=== PATIENT | female | born 1985 | race Caucasian/White ===

== ENCOUNTER 2020-07-05 11:26 | Day surgery (SDC) | payer OTHER, SELFPAY ==
[2020-07-01 12:37] VITALS: BMI 38.1
--- NOTE | 2020-07-03 15:02 | HO.ANESPROP2 ---
Documented by User: Elke Holt 07/03/20 15:02 HPI - Anesthesia Eval Consult details Narrative: 34yo F for Colonoscopy [facility] Past Medical History Medical History (Updated 07/05/20 @ 12:35 by Meryl Melton) Diverticulitis Hx of vertigo Increased BMI Social History Social History Smoking Status: Former smoker Years Smoked: 15 Smoking Quit Date: age 30 Advance Directives Information Provided: No Meds Allergies Allergy/AdvReac Type Severity Reaction Status Date / Time No Known Allergies Allergy Verified 07/05/20 11:46 [No Known Allergies*] Home Medications Medication Instructions Recorded Confirmed Type acetaminophen [Tylenol Extra 07/01/20 07/01/20 History Strength] Exam Exam Date and Time: July 03, 2020 1502 Height,Weight and Vital Signs: Height 5 ft 5 in Weight 103.873 kg Assessment and Plan Assessment Anesthesia Assessment: Chart Reviewed Documented by User: Meryl Melton 07/05/20 12:36 [facility] Past Medical History Medical History (Updated 07/05/20 @ 12:35 by Meryl Melton) Diverticulitis Hx of vertigo Increased BMI Family History Family history of problems with anesthesia: No Surgical History History of Problems with Anesthesia: No (Never had surgery) Social History Social History Smoking Status: Former smoker Years Smoked: 15 Smoking Quit Date: age 30 Advance Directives Information Provided: No Meds Allergies Allergy/AdvReac Type Severity Reaction Status Date / Time No Known Allergies Allergy Verified 07/05/20 11:46 [No Known Allergies*] Home Medications Medication Instructions Recorded Confirmed Type acetaminophen [Tylenol Extra 07/01/20 07/01/20 History Strength] Exam Height,Weight and Vital Signs: Vital Signs Temp Pulse Resp BP Pulse Ox 07/05/20 12:17 97.4 F 84 16 131/88 96 Airway Mallampati Class: II TM Dist: >3cm Neck ROM: Full Loose/Missing/Broken Teeth: No ([place]- intact) Heart: RRR Lungs: CTAB Assessment and Plan Assessment Anesthesia Assessment: Anesthesia Plan Discussed and Chart Reviewed Final Anesthetic Review NPO: Yes ASA Class: II Final Preanesthetic Review: No Changes in Pt Med Stat, Meds/Allgs Chart Reviewed, Consent Obtained/Reviewed and Anes Risks/Benef Reviewed Patient Risk: Low Procedure Risk: Low Anesthetic Plan Anesthetic Plan: MAC: Disposition: Standard PACU
[2020-07-05 12:11] LABS: UPreg QC Valid YES; Urine Pregnancy NEGATIVE (NEGATIVE)
[2020-07-05 12:17] VITALS: BP 131/88; PULSE 84; RESP 16; TEMP 36.3; O2SAT 96
[2020-07-05] MEDS: Lactated Ringers 1,000 ML 100 ML IVCONT (12:19)
--- NOTE | 2020-07-05 12:33 | MHC.SHP ---
Pre-Procedural Eval Section A The patient is an INPATIENT: No Changes since office visit: No Cold of Flu in the past 2 weeks, No New Medical Problems, No Changes in Medication and No Patient answered all questions The History & Physical has been completed within 30 days and I have reviewed it.: Yes Section B Chief Complaint: diverticulitis Allergies: Allergies Allergy/AdvReac Type Severity Reaction Status Date / Time No Known Allergies Allergy Verified 07/05/20 11:46 [No Known Allergies*] Plan Patient has been examined and remains a candidate for the planned procedure
[2020-07-05 13:09] VITALS: BP 94/56; PULSE 89; RESP 16; TEMP 36.4; O2SAT 98
--- NOTE | 2020-07-05 13:12 | PM.OP ---
Brief Operative Note Date of Service: 07/05/20 Pre-op diagnosis: diverticulitis Post-op diagnosis: same Procedure: colonoscopy Surgeon: Brandt Zhong Anesthesia: MAC Estimated blood loss (mL): 0 Pathology: none sent Condition: stable Disposition: PACU
[2020-07-05 13:24] VITALS: BP 110/70; PULSE 87; RESP 18; TEMP 36.4; O2SAT 99
--- NOTE | 2020-07-05 13:53 | HO.POSTANES ---
Post Anesthesia Evaluation Post Anesthesia Evaluation Vital Signs: Vital Signs Temp Pulse Resp BP Pulse Ox 07/05/20 13:24 97.6 F 87 18 110/70 99 07/05/20 13:09 97.6 F 89 16 94/56 L 98 07/05/20 12:17 97.4 F 84 16 131/88 96 Anesthesia: General (tiva) Mental Status: Awake Pain Control: Satisfactory Nausea/Vomiting: None Hydration: Adequate Anesthesia-Related Issues: No Anes. Related Issues
--- NOTE | 2020-07-05 14:43 | OP_ITS ---
SURGEON: Brandt Zhong MD INDICATIONS: Diverticulitis. PREOPERATIVE DIAGNOSIS: POSTOPERATIVE DIAGNOSIS: PROCEDURE PERFORMED: Colonoscopy to the terminal ileum. ESTIMATED BLOOD LOSS: COMPLICATIONS: ANESTHESIA: ASSISTANTS: SPECIMENS: MEDICATIONS: Monitored anesthesia care. DESCRIPTION OF PROCEDURE: History and physical performed. The risks and benefits of the procedure were explained to the patient. Informed consent was obtained. The patient was placed in the left lateral decubitus position. A digital rectal exam was performed and was found to be normal. The Olympus pediatric video colonoscope was introduced into the rectum and advanced to the cecum without difficulty. The cecum was identified by transillumination, palpation, and identification of ileocecal valve. Examination was performed and the scope was removed. She tolerated the procedure well and was taken to recovery area in stable condition. FINDINGS: The terminal ileum was normal. The visualized colonic mucosa was normal. The quality of prep was good. There was moderate sigmoid diverticulosis. Retroflexed examination showed small internal hemorrhoids. No mass lesions were identified. No colitis was seen. IMPRESSION: Diverticulosis. RECOMMENDATIONS: 1. Follow up as needed. 2. High-fiber diet. 3. Colon cancer screening is recommended every 10 years for average risk individuals beginning by age 50. MD DEANGELO Wang/PRIMITIVO / [phone]
== END 2020-07-05 14:00 | disposition home or self-care (01) ==
PROVIDERS: Nurse Practitioner; PCP Internal Medicine; Visit Provider Internal Medicine Gastroenterology
PROC: 0DJD8ZZ Inspection of Lower Intestinal Tract, Via Natural or Artificial Opening Endoscopic (ICD-10-PCS; CPT 45378; principal; 2020-07-05 12:40)
DX: K57.32 Diverticulitis of large intestine without perforation or abscess without bleeding (principal); K64.8 Other hemorrhoids; R42 Dizziness and giddiness; Z87.891 Personal history of nicotine dependence
CPT/HCPCS: 45378; 81025

== ENCOUNTER 2020-09-27 11:10 | Outpatient (REF) | payer OTHER, SELFPAY ==
[2020-09-27 11:32] LABS: MANUAL DIFF FLAG NO
[2020-09-27 11:36] LABS: Basophils Percent Auto 0.2 % (0-2); Eosinophils Absolute Auto 0.1 X10*3/uL (0.0-0.4); Hemoglobin 13.4 g/dl (12.0-16.0); Imm Gran Abs Auto 0.02 X10*3/uL (0.00-0.03); Imm Gran Pct Auto 0.4 % (0.0-0.4); Lymphocytes Absolute Auto 1.8 X10*3/uL (1.2-4.9); Lymphocytes Percent Auto 40.6 % (20-40); Mean Corpuscular HGB Conc 33.5 g/dl (31.0-35.0); Mean Corpuscular Hemoglobin 31.4 pg (27.0-33.0); Mean Corpuscular Volume 93.7 fL (80-98); Mean Platelet Volume 10.5 fL (9.4-12.3); Monocytes Absolute Auto 0.4 X10*3/uL (0.1-1.2); Monocytes Percent Auto 8.9 % (2-11); Neutrophils Absolute Auto 2.1 X10*3/uL (2.0-8.3); Neutrophils Percent Auto 47.9 % (45-73); Platelet Count 241 X10*3/uL (160-400); Red Blood Count 4.27 X10*6/uL (4.20-5.50); Red Cell Distribution Width 12.9 % (11.0-16.0); White Blood Count 4.5 X10*3/uL (4.8-10.8)
[2020-09-27 12:17] LABS: Alanine Aminotransferase 18 U/L (0-31); Albumin Level 4.2 g/dL (3.5-5.0); Alkaline Phosphatase 75 U/L (39-117); Anion Gap 11 (12-20); Aspartate Amino Transferase 15 U/L (5-31); Bilirubin Total 0.7 mg/dL (0.0-1.0); Blood Urea Nitrogen 11 mg/dL (9-16); Calcium 8.7 mg/dL (8.4-10.2); Carbon Dioxide 25 mmol/L (22-29); Chloride 109 mmol/L (96-108); Cholesterol 147 mg/dL; Estimated Glomerular Filt Rate > 60; Glucose Fasting 101 mg/dL (60-99); HDL Cholesterol 56 mg/dL; LDL Cholesterol Calculated 57 mg/dl; Potassium 4.1 mmol/L (3.3-5.1); Sodium 141 mmol/L (135-145); Total Protein 6.7 g/dL (6.5-8.0); Triglycerides 170 mg/dL
[2020-09-27 12:24] LABS: Thyroid Stimulating Hormone 1.63 uIU/mL (0.32-4.0)
== END 2020-09-27 11:11 | disposition home or self-care (01) ==
LOC: HO.LAB 11:10
PROVIDERS: PCP Internal Medicine; Visit Provider Internal Medicine
DX: Z00.00 Encounter for general adult medical examination without abnormal findings (principal); E03.9 Hypothyroidism, unspecified; E11.9 Type 2 diabetes mellitus without complications
CPT/HCPCS: 36415; 80053; 80061; 84443; 85025

== ENCOUNTER → 2021-01-23 11:43 | Outpatient (BNVA) | payer OTHER, SELFPAY | PROVIDERS: PCP Internal Medicine; Visit Provider Advanced Practice Midwife | DX: Z13.89 Encounter for screening for other disorder (principal) | CPT/HCPCS: 99212 ==

== ENCOUNTER → 2021-02-24 13:04 | Outpatient (BNVA) | payer OTHER, SELFPAY | PROVIDERS: PCP Internal Medicine; Visit Provider Advanced Practice Midwife | DX: Z30.46 Encounter for surveillance of implantable subdermal contraceptive (principal); Z30.09 Encounter for other general counseling and advice on contraception | CPT/HCPCS: 11982 ==

== ENCOUNTER → 2021-04-22 11:46 | Outpatient (BNVA) | payer OTHER, SELFPAY | PROVIDERS: PCP Internal Medicine; Referring Provider Internal Medicine; Visit Provider Physician Assistant ==

== ENCOUNTER → 2021-05-02 10:36 | Outpatient (BNVA) | payer OTHER, SELFPAY | PROVIDERS: PCP Internal Medicine; Visit Provider Surgery ==

== ENCOUNTER → 2021-05-13 12:49 | Outpatient (BNVA) | payer OTHER, SELFPAY | PROVIDERS: PCP Internal Medicine; Referring Provider Internal Medicine; Visit Provider Physician Assistant Surgical ==

== ENCOUNTER 2021-05-16 10:06 | Outpatient (REF) | payer OTHER, SELFPAY ==
--- NOTE | ~2021-05-16 | XR_ITS ---
EXAMINATION: XR CHEST CLINICAL INFORMATION: Obesity. COMPARISON: None TECHNIQUE: 2 views of the chest were obtained. FINDINGS: No significant abnormality is noted involving the heart, lungs, mediastinum, bony thorax or soft tissues. XR/XR chest 2V IMPRESSION: Unremarkable examination.
--- NOTE | 2021-05-16 10:15 | ECG_ITS ---
Test Reason : e66.9 obs Blood Pressure : / mmHG Vent. Rate : 069 BPM Atrial Rate : 069 BPM P-R Int : 138 ms QRS Dur : 074 ms QT Int : 410 ms P-R-T Axes : 012 024 -05 degrees QTc Int : 439 ms Normal sinus rhythm T-wave inversion in Inferior leads Cannot rule out Anterior infarct , age undetermined Abnormal ECG No previous ECGs available Referred By: Juan Luis Leos Electronically Signed By:YENY PEREZ
[2021-05-16 10:25] LABS: MANUAL DIFF FLAG NO
[2021-05-16 10:57] LABS: Basophils Percent Auto 0.3 % (0-2); Eosinophils Absolute Auto 0.1 X10*3/uL (0.0-0.4); Eosinophils Percent Auto 2.6 % (0-4); Hematocrit 40.4 % (37-47); Hemoglobin 13.5 g/dl (12.0-16.0); Imm Gran Abs Auto 0.01 X10*3/uL (0.00-0.03); Imm Gran Pct Auto 0.3 % (0.0-0.4); Lymphocytes Absolute Auto 1.3 X10*3/uL (1.2-4.9); Mean Corpuscular HGB Conc 33.4 g/dl (31.0-35.0); Mean Corpuscular Hemoglobin 31.5 pg (27.0-33.0); Mean Corpuscular Volume 94.4 fL (80-98); Mean Platelet Volume 11.3 fL (9.4-12.3); Monocytes Absolute Auto 0.4 X10*3/uL (0.1-1.2); Monocytes Percent Auto 12.5 % (2-11); Neutrophils Absolute Auto 1.7 X10*3/uL (2.0-8.3); Neutrophils Percent Auto 47.3 % (45-73); Platelet Count 228 X10*3/uL (160-400); Red Blood Count 4.28 X10*6/uL (4.20-5.50); White Blood Count 3.5 X10*3/uL (4.8-10.8)
[2021-05-16 11:05] LABS: Estimated Average Glucose 103 mg/dL; Hemoglobin A1c % 5.2 %
[2021-05-16 11:22] LABS: Alanine Aminotransferase 33 U/L (0-31); Albumin Level 4.7 g/dL (3.5-5.0); Alkaline Phosphatase 76 U/L (39-117); Anion Gap 14 (12-20); Aspartate Amino Transferase 23 U/L (5-31); Blood Urea Nitrogen 20 mg/dL (9-16); C Reactive Protein 0.44 mg/dL (< or = 0.50); Calcium 9.8 mg/dL (8.4-10.2); Carbon Dioxide 25 mmol/L (22-29); Chloride 107 mmol/L (96-108); Cholesterol 161 mg/dL; Estimated Glomerular Filt Rate > 60; Glucose Random 106 mg/dL (60-115); HDL Cholesterol 55 mg/dL; Iron 98 mcg/dL (30-160); LDL Cholesterol Calculated 75 mg/dl; Percent Iron Saturation 25 % (15-50); Potassium 4.6 mmol/L (3.3-5.1); Sodium 141 mmol/L (135-145); Total Iron Binding Capacity 388 mcg/dL (228-428); Total Protein 7.4 g/dL (6.5-8.0); Triglycerides 159 mg/dL; Unsaturated Iron Binding 290 ug/dL
[2021-05-16 11:59] LABS: Vitamin D 25-OH Total 15.3 ng/mL (>30)
[2021-05-16 12:23] LABS: Vitamin B12 400 pg/mL (200-900)
[2021-05-16 12:29] LABS: Ferritin 113 ng/mL (10-122)
[2021-05-19 13:27] LABS: Calcium (PTHI) 9.8 mg/dL (8.6-10.2); PTHI 47 pg/mL (14-64)
[2021-05-21 03:17] LABS: Zinc 79 mcg/dL (60-130)
[2021-05-22 00:12] LABS: Vitamin A 70 mcg/dL (38-98)
[2021-05-23 11:31] LABS: Vitamin B1 11 nmol/L (8-30)
== END 2021-05-16 10:07 | disposition home or self-care (01) ==
LOC: HO.XRAY 10:06
PROVIDERS: PCP Internal Medicine; Visit Provider Surgery
DX: I10 Essential (primary) hypertension (principal); E66.9 Obesity, unspecified; Z68.39 Body mass index [BMI] 39.0-39.9, adult
CPT/HCPCS: 36415; 71046; 80053; 80061; 82306; 82607; 82728; 82746; 83036; 83540; 83970; 84425; 84443; 84590; 84630; 85025; 86140; 93005

== ENCOUNTER → 2021-05-20 12:34 | Outpatient (BNVA) | payer OTHER, SELFPAY | PROVIDERS: PCP Internal Medicine; Visit Provider Physician Assistant ==

== ENCOUNTER → 2021-05-26 07:02 | Outpatient (BNVA) | payer OTHER, SELFPAY | PROVIDERS: PCP Internal Medicine; Visit Provider Surgery ==

== ENCOUNTER → 2021-05-27 13:16 | Outpatient (BNVA) | payer OTHER, SELFPAY | PROVIDERS: PCP Internal Medicine; Referring Provider Internal Medicine; Visit Provider Physician Assistant Surgical ==

== ENCOUNTER → 2021-06-11 08:06 | Outpatient (BNVA) | payer OTHER, SELFPAY | PROVIDERS: PCP Internal Medicine; Visit Provider Dietitian, Registered | DX: E66.9 Obesity, unspecified (principal) | CPT/HCPCS: 97802 ==

== ENCOUNTER → 2021-06-20 08:36 | Outpatient (REF) | payer OTHER, SELFPAY ==
--- NOTE | 2021-06-20 08:40 | CA_ITS ---
Transthoracic Echocardiogram Patient (Last, First, Middle): Malini Escalona, Gender: Female Date of : 1985 Age: 35 Procedure Date: 06/20/2021 Procedure Type: Transthoracic Echocardiogram Location: OP Height: 165.1 cm Weight: 104.33 kg BSA: 2.10 m2 Heart Rate: bpm BP: 128 / 80 mmHg Pellet Post Inspector: Referring MD: Juan Luis Leos MD Trekking Guide: Ventura Velazquez MD Symptoms: R94.31 - Abnormal electrocardiogram [ECG] [EKG] Study Quality: Fair ECG Rhythm: Sinus Conclusions: - Essentially normal study Findings Left Ventricle Normal left ventricular size, thickness, and systolic function. The visually estimated ejection fraction is between 60-65%. Spectral Doppler is indicative of a normal filling pattern. Right Ventricle Normal right ventricular cavity size and systolic function. Atria Both atria are normal in size. There is no evidence of interatrial shunt. Aortic Valve Normal aortic valve structure and function. There is no aortic valve stenosis. There is no aortic valve regurgitation. Mitral Valve Normal mitral valve structure and function. There is trace mitral valve regurgitation. There is no mitral valve stenosis. Pulmonic Valve The pulmonic valve is likely normal. Tricuspid Valve Normal tricuspid valve structure. There is trace tricuspid valve regurgitation. The right ventricular systolic pressure is normal. Normal right atrial pressure. There is no evidence of pulmonary hypertension. Great Vessels All visible segments of the aorta are normal in size. The pulmonary artery was not well visualized. Venous The inferior vena cava is normal in size and collapses greater than 50% with inspiration. Pericardium/Pleural There is no evidence of pericardial effusion. Prior Study Comparison No prior study available for comparison. Measurements 2D Linear Measurements IVSd: 0.94 0.6-0.9/0.6-1.0 cm LVIDd: 4.64 3.9-5.3/4.2-5.9 cm LVIDd Index: 2.21 2.4-3.2/2.2-3.1 cm/m2 LVIDs: 2.76 2.0-3.6 cm LVPWd: 0.86 0.7-1.1 cm Ao Root: 2.70 2.1-3.5 cm LA Diam: 3.80 2.7-3.8/3.0-4.0 cm LAIDs Index: 1.81 1.5-2.3 cm/m2 LV Mass: 173.62 67-162/88-224 g LV Mass Index: 82.68 43-95/49-115 g/m2 LVOT Diam: 2.30 3.0+(-)1.3 cm 2D Systolic Function EF 4C: 60.90 >55% EF 2C: 60.40 >55% EF BiP: 59.60 >55% Mitral Valve MV Pk E: 1.14 MV PK A: 0.62 MV Decel Time: 227.00 E/A: 1.80 E'Lateral: 15.10 E'Medial: 10.20 E/E' Med: 11.20 E/E' Lat: 7.50 PHT: 67.00 MVA PHT: 3.28 Decel [place]: 5.00 Aortic Valve AoV Pk [place]: 2.01 AoV Mn [place]: 1.32 AoV VTI: 0.48 AoV Pk Grad: 16.00 Aov Mn Grad: 8.00 YULIYA Cont.VTI: 2.07 LVOT LVOT Pk [place]: 1.01 LVOT Mn [place]: 0.65 LVOT VTI: 0.24 LVOT Pk Grad: 4.00 LVOT Mn Grad: 2.00 LVOT Diam: 2.30 LVOT Area: 4.15 Diastolic Function MV Pk E: 1.14 MV Pk A: 0.62 E/A: 1.80 E'Medial: 10.20 E/E' Med: 11.20 E' Laterial: 15.10 E/E' Lat: 7.50 Tricuspid Valve TR Pk [place]: 2.11 TR Pk Grad: 18.00 Great Vessels Aorta Ao Root-2D: 2.70 2.0-3.7 cm Ao Asc: 2.60 2.1-3.4 cm Pulmonary Valve PV Pk Zuhair: 0.84 Peak PV Grad: 3.00 Updated in Other Vendor System with Status of Final Ventura Velazquez MD electronically signed on 06/20/2021 4:45:36 PM with status of Final
[2021-06-20 08:48] LABS: MANUAL DIFF FLAG NO
[2021-06-20 09:47] LABS: Basophils Percent Auto 0.4 % (0-2); Eosinophils Absolute Auto 0.1 X10*3/uL (0.0-0.4); Eosinophils Percent Auto 2.4 % (0-4); Hematocrit 38.6 % (37.0-47.0); Hemoglobin 12.9 g/dl (12.0-16.0); Imm Gran Abs Auto 0.01 X10*3/uL (0.00-0.03); Imm Gran Pct Auto 0.2 % (0.0-0.4); Lymphocytes Absolute Auto 1.6 X10*3/uL (1.2-4.9); Lymphocytes Percent Auto 30.6 % (20-40); Mean Corpuscular HGB Conc 33.4 g/dl (31.0-35.0); Mean Corpuscular Hemoglobin 31.9 pg (27.0-33.0); Mean Corpuscular Volume 95.3 fL (80.0-98.0); Mean Platelet Volume 11.4 fL (9.4-12.3); Monocytes Absolute Auto 0.6 X10*3/uL (0.1-1.2); Monocytes Percent Auto 12.2 % (2-11); Neutrophils Absolute Auto 2.8 x10*3/uL (2.0-8.3); Neutrophils Percent Auto 54.2 % (45-73); Platelet Count 224 X10*3/uL (160-400); Red Blood Count 4.05 X10*6/uL (4.20-5.50); White Blood Count 5.1 X10*3/uL (4.8-10.8)
[2021-06-20 10:09] LABS: Alanine Aminotransferase 58 U/L (0-31); Albumin Level 4.2 g/dL (3.5-5.0); Alkaline Phosphatase 70 U/L (39-117); Anion Gap 11 (12-20); Aspartate Amino Transferase 29 U/L (5-31); Bilirubin Total 0.8 mg/dL (0.0-1.0); Blood Urea Nitrogen 18 mg/dL (9-16); Calcium 8.9 mg/dL (8.4-10.2); Carbon Dioxide 25 mmol/L (22-29); Chloride 107 mmol/L (96-108); Cholesterol 160 mg/dL; Estimated Glomerular Filt Rate > 60; Glucose Fasting 109 mg/dL (60-99); HDL Cholesterol 51 mg/dL; LDL Cholesterol Calculated 79 mg/dl; Potassium 4.5 mmol/L (3.3-5.1); Sodium 138 mmol/L (135-145); Total Protein 6.7 g/dL (6.5-8.0); Triglycerides 150 mg/dL
[2021-06-20 10:31] LABS: Thyroid Stimulating Hormone 1.33 uIU/mL (0.32-4.0)
--- NOTE | 2021-06-20 10:33 | CA_ITS ---
Acquisition Time: 2021-06-20 09:35:50 Total Exercise Time: 00:07:02 Test Indications: PREOP Medications: SEE CHART Protocol: ARNOLD Max HR: 162 BPM 87% of Pred: 186 BPM Max BP: 128/080 mmHG Max Work Load: 7.7 METS Exercise stress test with exercise 7 min 2 sec of Arnold protocol ( stage 3 speed reduced to 2.8 MPH due to difficulty with faster speed), without anginal symptoms, without arrythmia, with normotensive response to exercise, without EKG changes meeting criteria for ischemia. Test reviewed with Dr Velazquez. Referred By: Juan Luis Leos Overread By: JOSELYN JONES
== END ==
LOC: HO.CARD 08:36
PROVIDERS: Absent Provider Internal Medicine; PCP Internal Medicine; Visit Provider Surgery
DX: Z00.00 Encounter for general adult medical examination without abnormal findings (principal); R94.31 Abnormal electrocardiogram [ECG] [EKG]
CPT/HCPCS: 36415; 80053; 80061; 84443; 85025; 93017; 93306

== ENCOUNTER → 2021-06-23 08:09 | Outpatient (BNVA) | payer OTHER, SELFPAY | PROVIDERS: PCP Internal Medicine; Visit Provider Surgery ==

== ENCOUNTER 2021-06-24 13:03 | Outpatient (REF) | payer OTHER, SELFPAY ==
[2021-06-27 12:14] LABS: H Pylori Breath Test Negative (Negative)
== END 2021-06-24 13:04 | disposition home or self-care (01) ==
LOC: HO.LNP 13:03
PROVIDERS: Visit Provider Surgery
DX: E66.9 Obesity, unspecified (principal); Z68.39 Body mass index [BMI] 39.0-39.9, adult; I10 Essential (primary) hypertension
CPT/HCPCS: 83013

== ENCOUNTER 2021-06-24 13:03 | Outpatient (REF) | payer OTHER, SELFPAY | END 2021-06-24 13:04 | LOC: HO.US 13:03 | PROVIDERS: PCP Internal Medicine; Referring Provider Internal Medicine; Visit Provider Physician Assistant Surgical | DX: Z11.0 Encounter for screening for intestinal infectious diseases (principal) | CPT/HCPCS: 99211 ==

== ENCOUNTER → 2021-07-25 08:01 | Outpatient (BNVA) | payer OTHER, SELFPAY | PROVIDERS: PCP Internal Medicine; Referring Provider Surgery; Visit Provider Dietitian, Registered ==

== ENCOUNTER → 2021-08-11 08:09 | Outpatient (BNVA) | payer OTHER, SELFPAY | PROVIDERS: PCP Internal Medicine; Visit Provider Dietitian, Registered | DX: E66.9 Obesity, unspecified (principal); Z68.38 Body mass index [BMI] 38.0-38.9, adult | CPT/HCPCS: 97803 ==

== ENCOUNTER → 2021-08-14 08:34 | Outpatient (BNVA) | payer OTHER, SELFPAY | PROVIDERS: PCP Internal Medicine; Referring Provider Surgery; Visit Provider Dietitian, Registered ==

== ENCOUNTER 2021-09-09 09:21 | Outpatient (REF) | payer OTHER, SELFPAY ==
--- NOTE | ~2021-09-09 | FL_ITS ---
EXAMINATION: XR FLUOROSCOPY UPPER GI WITH AIR CLINICAL INFORMATION: Obesity. COMPARISON: None. TECHNIQUE: Routine upper GI contrast study was performed. FINDINGS: Following oral administration of thick barium and effervescent granules, there is normal propagation of bolus from the oral cavity through the pharynx and esophagus and into the stomach without any evidence of obstruction, narrowing or stricture. The course, caliber and peristalsis of the esophagus, stomach, duodenal bulb and the sweep are normal. There is mild increased secretions. The mucosal pattern of stomach, duodenal bulb and sweep is normal. There is mild gastroesophageal reflux in supine view without hiatal hernia. FLUOROSCOPY TIME: 1.0 minutes DOSE AREA PRODUCT: 21.341 uGy-m2 (microgray-meter squared) FL/FL upper GI w air IMPRESSION: Mild gastroesophageal reflux without hiatal hernia. Mild increased gastric secretions likely hyperacidity.
--- NOTE | ~2021-09-09 | US_ITS ---
EXAMINATION: US COMPLETE ABDOMEN WITH LIVER ELASTOGRAPHY CLINICAL INFORMATION: Obesity, unspecified. COMPARISON: None TECHNIQUE: Real-time imaging of the abdominal viscera. Noninvasive ultrasound liver fibrosis assessment is performed using Ranjit ElastPQ point quantification shear wave elastography (2D-SWE) with a C5-2 MHz transducer. Multiple elastography samples are obtained. FINDINGS: PANCREAS: The visualized pancreatic head and body are normal in appearance. The remainder of the pancreas is obscured from visualization by the overlying bowel gas. ABDOMINAL AORTA: The proximal, middle, and distal aortic segments are normal in caliber. INFERIOR VENA CAVA: Visualized portions are normal. LIVER: Normal. The liver demonstrates normal size, contour and echogenicity. No focal lesion or intrahepatic biliary duct dilatation. The right lobe measures 15 cm in length. The left lobe measures 10 cm in length. Portal flow is normal/hepatopetal. Shear wave liver elastography median stiffness is 1.4 m/s (reference: Normal median stiffness is 1.3 m/s or less). IQR/median stiffness to assess sampling precision is 0.21 (reference: Good quality data set is IQR/median stiffness of 0.15 or less). GALLBLADDER: The gallbladder is normal in size. There is a 1.3 cm gallstone near the neck of the gallbladder. The gallbladder wall is normal in thickness. COMMON BILE DUCT: Normal in caliber measuring 0.2 cm in diameter. RIGHT KIDNEY: Normal. No hydronephrosis. No renal calculi or focal parenchymal lesions. The kidney measures 10 cm in maximum dimension. LEFT KIDNEY: Normal. No hydronephrosis. No renal calculi or focal parenchymal lesions. The kidney measures 10.7 cm in maximum dimension. SPLEEN: Normal. The spleen measures 9 cm in maximum dimension. FREE FLUID: None. US/US abdomen comp w elastography IMPRESSION: 1. Normal-appearing liver. Gallstone. Limited visualization of the tail of the pancreas. 2. Liver Elastography: Limited due to sampling error. In the absence of other known clinical signs, rules out compensated advanced chronic liver disease. REFERENCE: Society of Radiologists in Ultrasound Liver Stiffness Thresholds (2020): LIVER STIFFNESS THRESHOLDS: *Liver Stiffness equal or less than 1.3 m/s: High probability of being normal. *Liver Stiffness less than 1.7 m/s: In the absence of other known clinical signs, rules out compensated advanced chronic liver disease. *Liver Stiffness 1.7-2.1 m/s: Suggestive of compensated advanced chronic liver disease but need further test for confirmation. *Liver Stiffness over 2.1 m/s: Rules in compensated advanced chronic liver disease. *Liver Stiffness over 2.4 m/s: Suggestive of clinically significant portal hypertension. QUALITY OF DATA SET: *IQR/Median value equal or less than 0.15 implies a quality data set. *IQR/Median value over 0.15 implies a poor quality data set. SIGNIFICANT CHANGE FROM PRIOR EXAM: Significant change if liver stiffness measurement is 10% or greater from prior exam. OTHER CONSIDERATIONS: The stage of liver fibrosis may be overestimated in the setting of acute hepatitis, liver inflammation, elevated liver function tests, hepatic vascular congestion, obstructive cholestasis, non-fasting state, and infiltrative diseases such as amyloidosis and lymphoma. In some patients with NAFLD, the liver stiffness thresholds for compensated advanced chronic liver disease may be lower. In causes other than viral hepatitis and NAFLD, liver stiffness thresholds are not well established.
== END 2021-09-09 09:22 | disposition home or self-care (01) ==
LOC: HO.US 09:21
PROVIDERS: PCP Internal Medicine; Visit Provider Surgery
DX: E66.9 Obesity, unspecified (principal); I10 Essential (primary) hypertension; Z68.39 Body mass index [BMI] 39.0-39.9, adult
CPT/HCPCS: 74246; 76705; 76981

== ENCOUNTER → 2021-09-23 08:04 | Outpatient (BNVA) | payer OTHER, SELFPAY | PROVIDERS: PCP Internal Medicine; Visit Provider Dietitian, Registered | DX: E66.9 Obesity, unspecified (principal) | CPT/HCPCS: 97803 ==

== ENCOUNTER → 2021-10-14 08:14 | Outpatient (BNVA) | payer OTHER, SELFPAY | PROVIDERS: PCP Internal Medicine; Referring Provider Physician Assistant; Visit Provider Dietitian, Registered | DX: E66.9 Obesity, unspecified (principal); Z68.36 Body mass index [BMI] 36.0-36.9, adult; Z71.3 Dietary counseling and surveillance | CPT/HCPCS: 97803 ==

== ENCOUNTER → 2021-11-03 07:39 | Outpatient (BNVA) | payer OTHER, SELFPAY | PROVIDERS: PCP Internal Medicine; Visit Provider Surgery | DX: Z13.89 Encounter for screening for other disorder (principal) ==

== ENCOUNTER → 2021-11-07 12:46 | Outpatient (BNVA) | payer OTHER, SELFPAY | PROVIDERS: PCP Internal Medicine; Referring Provider Internal Medicine; Visit Provider Surgery | DX: Z13.89 Encounter for screening for other disorder (principal) ==

== ENCOUNTER 2021-11-11 11:16 | Inpatient (IN) | payer OTHER, SELFPAY ==
[2021-11-04 09:23] VITALS: BMI 35.9
[2021-11-04 10:22] LABS: MANUAL DIFF FLAG NO
[2021-11-04 10:42] LABS: Basophils Percent Auto 0.5 % (0-2); Eosinophils Absolute Auto 0.1 X10*3/uL (0.0-0.4); Eosinophils Percent Auto 2.5 % (0-4); Hemoglobin 13.3 g/dl (12.0-16.0); Lymphocytes Absolute Auto 1.5 X10*3/uL (1.2-4.9); Lymphocytes Percent Auto 37.6 % (20-40); Mean Corpuscular HGB Conc 33.3 g/dl (31.0-35.0); Mean Corpuscular Hemoglobin 30.4 pg (27.0-33.0); Mean Corpuscular Volume 91.5 fL (80.0-98.0); Mean Platelet Volume 11.4 fL (9.4-12.3); Monocytes Absolute Auto 0.3 X10*3/uL (0.1-1.2); Monocytes Percent Auto 8.1 % (2-11); Neutrophils Absolute Auto 2.1 x10*3/uL (2.0-8.3); Neutrophils Percent Auto 51.3 % (45-73); Platelet Count 204 X10*3/uL (160-400); Red Blood Count 4.37 X10*6/uL (4.20-5.50); Red Cell Distribution Width 12.6 % (11.0-16.0); White Blood Count 4.1 X10*3/uL (4.8-10.8)
[2021-11-04 10:54] LABS: INTERNATIONAL NORM RATIO 0.9 (0.9-1.1); Prothrombin Time 10.6 SEC (9.9-13.0)
[2021-11-04 10:57] LABS: Partial Thromboplastin Time 36.5 SEC (24.1-38.0)
[2021-11-04 11:06] LABS: Estimated Average Glucose 103 mg/dL; Hemoglobin A1c % 5.2 %
[2021-11-04 11:20] LABS: Alanine Aminotransferase 21 U/L (0-31); Albumin Level 4.2 g/dL (3.5-5.0); Alkaline Phosphatase 78 U/L (39-117); Anion Gap 12 (12-20); Aspartate Amino Transferase 16 U/L (5-31); Bilirubin Total 0.7 mg/dL (0.0-1.0); Blood Urea Nitrogen 14 mg/dL (9-16); C Reactive Protein 0.29 mg/dL (< or = 0.50); Calcium 9.3 mg/dL (8.4-10.2); Carbon Dioxide 24 mmol/L (22-29); Chloride 107 mmol/L (96-108); Cholesterol 149 mg/dL; Creatinine Clr Calc Pharmacy 113.3; Estimated Glomerular Filt Rate > 60; Glucose Random 100 mg/dL (60-115); HDL Cholesterol 56 mg/dL; LDL Cholesterol Calculated 64 mg/dl; Potassium 4.3 mmol/L (3.3-5.1); Sodium 139 mmol/L (135-145); Total Protein 6.7 g/dL (6.5-8.0); Triglycerides 146 mg/dL
[2021-11-04 11:40] LABS: Insulin 14 uU/mL (2-29); TSH reflex Free T4 1.69 uIU/mL (0.32-4.0)
--- NOTE | 2021-11-08 00:23 | MHC.SHP ---
Pre-Procedural Eval Section A Date of Service: 11/08/21 The patient is an INPATIENT: Yes The History & Physical has been completed within 30 days and I have reviewed it.: Yes Section B Chief Complaint: obesity Relevant Family History (Specify if Yes): No Relevant Social History: None Present Medications: None Medical History: No relevant PMH History of Previous Operations: No relevant previous surgery Allergies: Allergies Allergy/AdvReac Type Severity Reaction Status Date / Time No Known Allergies Allergy Verified 11/03/21 08:54 [No Known Allergies*] Review of Systems Sugical H&P ROS: Negative: Constitution, Cardiovascular, Respiratory, Neurological, Psychiatric, Hem-Onc, Allergic/Immunologic, Gastrointestinal, Genitourinary, Musculoskeletal, Integumentary, Endocrine and Eyes/Ears/Nose/Throat Exam Surgical H&P Exam: Normal: HEENT, Normal: Heart, Normal: Lungs, Normal: Extremities, Normal: Abdomen, Normal: Skin and Normal: Neurological Plan Diagnosis/Plan: Unchanged I have reviewed the history and physical and performed a pertinent physical examination on my patient. No changes have occurred unless specified.
--- NOTE | 2021-11-10 10:22 | HO.ANESPROP2 ---
Documented by User: Elke Holt NP 11/10/21 10:25 HPI - Anesthesia Eval Consult details Narrative: 35yo F for Gastrectomy Sleeve,EGD,poss diaphragmatic hernia,poss ventral hernia,poss open, PMFSH Active Problems Active Problems: All Active Problems (Updated 11/04/21 @ 09:21 by Marleen Kline RN) Physical exam (Acute) Encounter for surveillance of Nexplanon subdermal contraceptive (Acute) BMI 39.0-39.9,adult (Acute) Adjustment disorder, unspecified (Acute) Vitamin D deficiency (Acute) Vitamin B12 deficiency (Acute) Abnormal EKG (Acute) BMI 38.0-38.9,adult (Acute) Obesity (Acute) Hypertension (Acute) Anxiety (Acute) Increased BMI (Acute) Past Medical History Medical History (Updated 11/11/21 @ 13:00 by Juan Luis Leos MD) Anemia affecting Anxiety Diverticulitis GERD (gastroesophageal reflux disease) Hx of vertigo Hypertension Immunization refused Increased BMI Obesity Family History Family History Father Bipolar 1 disorder Chronic mental illness Mental health disorder Mother Diabetes Hypertension Maternal Grandmother Diabetes Hypertension Maternal Grandfather Diabetes Paternal Grandmother Diabetes Maternal Aunt Diabetes Daughter In good health Family history of problems with anesthesia: No Surgical History Surgical History (Updated 11/11/21 @ 15:49 by Candace Hess PA-C) H/O colonoscopy History of Problems with Anesthesia: No (Never had surgery) Social History Social History Household Members Other:: minor children Housing: Apartment 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 If so, by whom?: No Are you DNR?: No Advance Directives: No Advance Directives Information Provided: Yes (brochure mailed) Advance Directives on File: No Recently lost weight without trying: No Eating poorly because of decreased appetite: No Nutrition Risks: No Nutritional Risk Patient : No FDLMP: 11/04/21 : No Poor oral hygiene: No (has cap left lower molar) service: No Current occupational status: employed Cognitive needs: No Hearing needs: No Vision needs: No Meds Allergies Allergy/AdvReac Type Severity Reaction Status Date / Time No Known Allergies Allergy Verified 11/03/21 08:54 [No Known Allergies*] Home Medications Medication Instructions Recorded Confirmed Last Taken Type lisinopril 20 mg tablet 10 mg PO DAILY 11/04/21 11/04/21 Unknown History ondansetron HCl 4 mg tablet 4 mg PO Q12H PRN 11/11/21 11/11/21 Unknown History Exam Exam Date and Time: November 10, 2021 1022 Height,Weight and Vital Signs: Height 5 ft 5 in Weight 97.976 kg Pertinent Lab Results Pertinent Lab Results: Laboratory Tests 11/04/21 11/04/21 11/04/21 10:18 10:18 10:18 WBC 4.1 L RBC 4.37 Hgb 13.3 Hct 40.0 MCV 91.5 MCH 30.4 MCHC 33.3 RDW 12.6 Plt Count 204 MPV 11.4 Immature Gran % (Auto) 0.0 Neut % (Auto) 51.3 Lymph % (Auto) 37.6 [place] % (Auto) 8.1 Eos % (Auto) 2.5 Baso % (Auto) 0.5 Lymph # (Auto) 1.5 [place] # (Auto) 0.3 Eos # (Auto) 0.1 Baso # (Auto) 0.0 Abs Immat Gran (auto) 0.00 Absolute Neuts (auto) 2.1 Absolute Nucleated RBC 0.000 Nucleated RBC % (auto) 0.0 PT 10.6 INR 0.9 APTT 36.5 Sodium 139 Potassium 4.3 Chloride 107 Carbon Dioxide 24 Anion Gap 12 BUN 14 Creatinine 0.81 Estim Creat Clear Calc 113.3 Estimated GFR > 60 Random Glucose 100 Estimat Average Glucose Hemoglobin A1c % Insulin Level 14 Calcium 9.3 Total Bilirubin 0.7 AST 16 D ALT 21 Alkaline Phosphatase 78 C-Reactive Protein 0.29 Total Protein 6.7 Albumin 4.2 Triglycerides 146 Cholesterol 149 LDL Cholesterol, Calc 64 HDL Cholesterol 56 TSH 1.69 Blood Type Antibody Screen 11/04/21 11/07/21 10:18 12:12 WBC RBC Hgb Hct MCV MCH MCHC RDW Plt Count MPV Immature Gran % (Auto) Neut % (Auto) Lymph % (Auto) [place] % (Auto) Eos % (Auto) Baso % (Auto) Lymph # (Auto) [place] # (Auto) Eos # (Auto) Baso # (Auto) Abs Immat Gran (auto) Absolute Neuts (auto) Absolute Nucleated RBC Nucleated RBC % (auto) PT INR APTT Sodium Potassium Chloride Carbon Dioxide Anion Gap BUN Creatinine Estim Creat Clear Calc Estimated GFR Random Glucose Estimat Average Glucose 103 Hemoglobin A1c % 5.2 Insulin Level Calcium Total Bilirubin AST ALT Alkaline Phosphatase C-Reactive Protein Total Protein Albumin Triglycerides Cholesterol LDL Cholesterol, Calc HDL Cholesterol TSH Blood Type O Positive Antibody Screen NEGATIVE Narrative Narrative: EKG 05/2022 Vent. Rate : 069 BPM ? ? Atrial Rate : 069 BPM ?? P-R Int : 138 ms? QRS Dur : 074 ms ? ? QT Int : 410 ms ? ? ? P-R-T Axes : 012 024 -05 degrees ?? QTc Int : 439 ms ? Normal sinus rhythm T-wave inversion in Inferior leads Cannot rule out Anterior infarct , age undetermined Abnormal ECG No previous ECGs available ECHO 06/2021 Conclusions: - Essentially normal study? Exercise Stress 07/2021 Protocol: BORIS ? Max HR: 162 BPM? 87% of? Pred: 186 BPM Max BP: 128/080 mmHG Max Work Load: 7.7 METS ? Exercise stress test with exercise 7 min 2 sec of Boris protocol ( stage 3 speed ?reduced to 2.8 MPH due to difficulty with faster speed), without anginal ?symptoms, without arrythmia, with normotensive response to exercise, without ?EKG changes meeting criteria for ischemia. Test reviewed with Dr Velazquez. Assessment and Plan Assessment Anesthesia Assessment: Chart Reviewed Final Anesthetic Review Family History of Problems with Anesthesia: No History of Problems with Anesthesia: No (Never had surgery) Documented by User: Drew Montoya MD 11/11/21 17:26 [facility] Past Medical History Medical History (Updated 11/11/21 @ 13:00 by Juan Luis Leos MD) Anemia affecting Anxiety Diverticulitis GERD (gastroesophageal reflux disease) Hx of vertigo Hypertension Immunization refused Increased BMI Obesity Functional capacity: independent ambulation Family History Family History Father Bipolar 1 disorder Chronic mental illness Mental health disorder Mother Diabetes Hypertension Maternal Grandmother Diabetes Hypertension Maternal Grandfather Diabetes Paternal Grandmother Diabetes Maternal Aunt Diabetes Daughter In good health Surgical History Surgical History (Updated 11/11/21 @ 15:49 by Candace Hess PA-C) H/O colonoscopy Social History Social History Household Members Other:: minor children Housing: Apartment 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 If so, by whom?: No Are you DNR?: No Advance Directives: No Advance Directives Information Provided: Yes (brochure mailed) Advance Directives on File: No Recently lost weight without trying: No Eating poorly because of decreased appetite: No Nutrition Risks: No Nutritional Risk Patient : No FDLMP: 11/04/21 : No Poor oral hygiene: No (has cap left lower molar) service: No Current occupational status: employed Cognitive needs: No Hearing needs: No Vision needs: No Meds Allergies Allergy/AdvReac Type Severity Reaction Status Date / Time No Known Allergies Allergy Verified 11/03/21 08:54 [No Known Allergies*] Home Medications Medication Instructions Recorded Confirmed Last Taken Type lisinopril 20 mg tablet 10 mg PO DAILY 11/04/21 11/04/21 Unknown History ondansetron HCl 4 mg tablet 4 mg PO Q12H PRN 11/11/21 11/11/21 Unknown History Exam Airway Mallampati Class: II TM Dist: >3cm Neck ROM: Full Loose/Missing/Broken Teeth: Yes Heart: rrr Lungs: bl breath sounds Assessment and Plan Assessment Anesthesia Assessment: Anesthesia Plan Discussed Final Anesthetic Review NPO: Yes ASA Class: III Final Preanesthetic Review: Meds/Allgs Chart Reviewed, Consent Obtained/Reviewed and Anes Risks/Benef Reviewed Patient Risk: Intermediate Procedure Risk: Intermediate Anesthetic Plan Anesthetic Plan: GA Disposition: Inp. Admit - Standard Bed
[2021-11-10 12:59] LABS: IDNOW Serial# 08D9AD1C
[2021-11-10 13:00] LABS: COVID-19 Test Negative (Negative)
[2021-11-11] VITALS (18 sets, daily range): BP systolic 125–172; BP diastolic 76–99; PULSE 54–90; RESP 12–20; TEMP 36.2–37.1; O2SAT 94–100
[2021-11-11 11:28] LABS: UPreg QC Valid YES; Urine Pregnancy NEGATIVE (NEGATIVE)
[2021-11-11] MEDS: Lactated Ringers 1,000 ML 999 ML IV (12:04)
[2021-11-11] MEDS: Lactated Ringers 1,000 ML 100 ML IVCONT (12:04)
--- NOTE | 2021-11-11 12:57 | PM.OP ---
Brief Operative Note Date of Service: 11/11/21 Pre-op diagnosis: Severe obesity with comorbidities (see below) Post-op diagnosis: same Procedure: INITIAL PATIENT BMI ON PRESENTATION AT OUR OFFICE: 39.2 kg/m2 LAST BMI BEFORE SURGERY: 35.6 kg/m2 COMORBIDITIES: hypertension, GERD, cholelithiasis ?The patient presented to the Weight Management Program with significant obesity that was negatively impacting the patient's comorbidities as listed above.? The program is a phased program with a special focus on preoperative medical weight management to promote substantial weight loss and prepare the patients for the second phase of the program: bariatric surgery. The patient participated in an intensive weekly lifestyle ?intervention and exercise program during which the patient ?has lost between the initial office visit and the last preoperative visit 19.2lbs, or 8.15% of initial actual body weight. It was deemed appropriate for the patient to now have bariatric surgery. In light of the current Covid-19 pandemic and the well documented strong association of obesity and increased risk of worse outcomes if infected with Covid-19 (REFERENCES:https://pubmed.ncbi.nlm.nih.gov/48649575/,?https://pubmed.ncbi.nlm.nih.gov/18046285/), any delay in undergoing bariatric surgery may lead to the patient's worsening health condition and increased?risk of more severe Covid-19 disease if infected. In addition a recent?study from [facility] published in [facility] on 08/11/2021 ([email or web address]) found that, among patients with obesity, substantial weight loss achieved with surgery was associated with improved outcomes of COVID-19 infection. The findings suggest that obesity can be a modifiable risk factor for the severity of COVID-19 infection. In addition, the patient met the BMI-criteria for bariatric surgery based on the BMI on initial presentation. The patient should not be penalized for achieving such weight loss because ?it is not sustainable long-term without surgical intervention and it was achieved in preparation for bariatric surgery ?under my direction and based on my published research ([email or web address]).[email or web address] and?https://www.soard.org/article/[email or web address](00)79596-X/pdf) ?that a 10% preoperative weight loss improves long-term weight loss after surgery and reduces perioperative complications.? Insurance carriers such as [facility] [facility] have endorsed my recommendations ?and have included in their policies criteria to include a 10% preoperative weight loss requirement. PROCEDURE: Esophago-gastroscopy, laparoscopic lysis of adhesions, laparoscopic sleeve gastrectomy and laparoscopic gastropexy INDICATIONS: This is a 35 year-old female who was electively scheduled for laparoscopic, possibly open sleeve gastrectomy. The risks and complications of the procedure were discussed with the patient in advance, particularly the possibility of ; pulmonary embolism; staple line leak; bleeding; GERD; cardiac, pulmonary, or renal complications; as well as long-term problems such as insufficient weight loss, vitamin deficiency, strictures, or ulcers. The patient understood all the risks, and was in agreement to proceed with surgery. DESCRIPTION OF PROCEDURE: After informed consent was obtained from the patient, the patient was given preoperative antibiotics, and was transferred to the operating room. After successful induction of general anesthesia, pneumatic compression devices were placed on both lower extremities. An upper endoscopy was performed next. The oropharynx and esophagus appeared to be within normal limits. There was no diaphragmatic hernia present, consistent with the findings of the preoperative upper GI. The stomach was entered. Then after all fluid and air were suctioned and the stomach was fully decompressed, the scope was withdrawn and secured in the mid esophagus. The patient was then prepped and draped in the usual sterile manner, and abdominal access was established at the right upper quadrant with the Bernardo technique. A 12 mm blunt port was inserted, and the abdomen was insufflated with CO2 to a pressure of 15 mmHg. Under direct visualization, additional ports were placed, specifically two 5 mm Versi-step ports to the left upper quadrant, and a 5 mm Versi-Step port to the right upper quadrant. 1% lidocaine plain was used to infiltrate all port sites as well as all fascia defects. Following that, the patient was placed in a steep reverse Trendelenburg position. An additional 5 mm port was placed to the right flank for the Mediflex retractor that was used to retract the left lobe of the liver. The gastro-esophageal fat pad was opened with the ultrasonic device (Thunderbeat, Olympus) and the anterior esophagus and hiatus were exposed. The angle of His was opened with the ultrasonic device the fundus of the stomach from any diaphragmatic and splenic attachments. I then opened the gastrocolic ligament between the transverse colon and the greater curvature of the stomach with the ultrasonic device to enter the lesser sac and facilitate the ligation of the short gastric vessels. I started at a mid-point along the greater curvature and using the Thunderbeat, all short gastric vessels were divided all the way to the angle of His until the left tavon was completely dissected at its entirety. I then divided the gastro-colic ligament distally to a distance of about 3-4 cm proximal to the pylorus. There were extensive congenital adhesions between the pancreas and posterior gastric wall. Those were lysed completely with the ultrasonic device. Adhesiolysis took approximately 45 min to complete. The stomach was then divided transversely with one Endo LEIGHTON-45 purple, one LEIGHTON-45 orange loads and four LEIGHTON-60 articulating orange loads using the AEON stapler and loads. Every effort was made that the gastric sleeve had a tubular shape and an even caliber throughout. Once the sleeve resection was completed, the staple line of the gastric sleeve was reinforced with Hemoclips. The resected stomach was retrieved without difficulty from the Bernardo port. A gastropexy was then performed in order to prevent postoperative GERD and partial gastric volvulus. Several interrupted 2.0 Surgidac sutures were placed between the sleeve's staple line and the previously divided greater omentum and gastro-colic ligament using the Endo-Stitch device. ?An upper endoscopy was performed. There was no narrowing at the GE junction. The scope was easily advanced all the way to the pylorus which was clearly visualized. There was no narrowing anywhere and the sleeve's caliber was even throughout. The sleeve's staple line was inspected and there was no evidence of ischemia, bleeding or dehiscence. At that point the gastroscope was withdrawn from the patient?s mouth while we were decompressing the bowel and the stomach from any remaining air. I looked into the lesser sac to see how the sleeve was situating and it was situating well. There was no bleeding from the staple line, spleen, or short gastric vessels. The Mediflex retractor was removed, and the undersurface of the liver was inspected and there was no bleeding. The patient was placed in supine position. I closed the fascial defect of the 12 mm port site with a figure of eight #1 Polysorb suture. Then 100 cc 0.25 % Marcaine plain with 10 mg of Dexamethasone were used to infiltrate the fascial closure as well as all skin incisions. At this point, the abdomen was deflated, all ports were removed under direct vision, and no bleeding was noted from any of the port sites. The skin incisions were irrigated with saline and were closed with 4-0 absorbable monofilament sutures. Steri-Strips and OpSites were used to cover all incisions. The patient was extubated and was transferred in stable condition to the recovery room for further care. I was present and performed all baird parts of the procedure. Ms. Hess was the certified first assistant. There were no residents to assist with this case. Kevin Leos MD, PhD, FACS Surgeon: Juan Luis Leos MD Anesthesia: GETA, local and other (TAP block) Was an Smocking Machine Operator used for this Procedure?: No Smocking Machine Operator: Candace Hess Estimated blood loss (mL): 10 IV fluids (mL): 3,000 Urine output (mL): 0 (No Bazan to record) Pathology: other (Stomach) Condition: stable Disposition: PACU
--- NOTE | 2021-11-11 12:59 | PM.PNGS ---
Subjective Subjective Date of Service: 11/12/21 Interval history: Patient has mild incisional pain, but was able to ambulate and use the incentive spirometer. She is tolerating phase 1 bariatric diet Physical Exam Vital Signs: Vital Signs: Last Vital Signs Temp 98.5 F 11/11/21 11:29 Pulse 87 11/11/21 11:29 Resp 18 11/11/21 11:29 BP 125/84 11/11/21 11:29 Pulse Ox 98 11/11/21 11:29 BMI result Body Mass Index 35.9 GI: Inspection: Yes normal to inspection, Yes incision (lean, dry and intact) and Yes obesity Extrem: Right lower extremity: normal to inspection (no calf tenderness) Left lower extremity: normal to inspection (no calf tenderness) Objective Data Active Medications Lactated Ringer's (Lr) 1,000 mls @ 100 mls/hr IVCONT .Q10H LAUREL Last Admin: 11/11/21 12:04 Dose: 100 mls/hr Documented by: LAURA Labs CBC & Chem 7: 11/12/21 05:19 11/12/21 05:19 Labs: Laboratory Results - last 24 hr 11/10/21 11/11/21 12:20 11:15 Urine Test NEGATIVE COVID-19 (IVONNE) Negative COVID-19 Clin Com See Note Procedures Date of Service Date of Service: 11/12/21 Progress Note: A&P Assessment and plan (1) Obesity: Status: Acute Assessment and Plan: s/p laparoscopic sleeve gastrectomy, lysis of adhesions repair of diaphragmatic hernia, and gastropexy Doing well Check am labs. If OK, will discharge home (2) BMI 35.0-35.9,adult: Status: Acute (3) Hypertension: Status: Acute (4) Anxiety: Status: Acute (5) GERD (gastroesophageal reflux disease): Status: Acute (6) Cholelithiasis: Status: Acute (7) S/P laparoscopic sleeve gastrectomy: Status: Acute Fall Risk Details Current Medications: Current Medications Lactated Ringer's (Lr) 1,000 mls @ 100 mls/hr IVCONT .Q10H LAUREL Last Admin: 11/11/21 12:04 Dose: 100 mls/hr Documented by: Time Spent With Patient Time: Total time spent is greater than 50% in coordination of care (as documented) at patient's floor/unit and/or counseling patient: Quality Stroke Does the patient have a stroke diagnosis?: No VTE Prior VTE?: No VTE Risk Level:: Surgical - moderate VTE Device Contraindication: N/A - Device Ordered VTE Drug Contraindication: Treatment Not Indicated
[2021-11-11] MEDS: ceFAZolin Sodium/Dextrose,Iso 2 GM/50 ML PIGGYBACK IV ×2 (13:35→22:00)
[2021-11-11] MEDS: HYDROmorphone HCl 0.5 MG/0.5 ML SYRINGE 0.25 MG IVPUSH ×3 (15:48→16:03)
--- NOTE | 2021-11-11 15:51 | PM.DS ---
DS: Providers Provider Date of Service: 11/12/21 Date of admission: 11/11/21 11:16 Primary care physician: Elroy Ellis MD DS: Diagnosis Discharge Diagnosis (1) Obesity: Status: Acute (2) BMI 35.0-35.9,adult: Status: Acute (3) Hypertension: Status: Acute (4) Anxiety: Status: Acute (5) GERD (gastroesophageal reflux disease): Status: Acute (6) Cholelithiasis: Status: Acute DS: Summary Hospital Course Hospital Course: ADMITTING DIAGNOSIS: morbid obesity, HTN DISCHARGE DIAGNOSIS: same, s/p laparoscopic sleeve gastrectomy PAST SURGICAL HISTORY: colonoscopy PROCEDURE: upper endoscopy, laparoscopic sleeve gastrectomy DISCHARGE SUMMARY: History of Present Illness: The patient is a 35 year-old woman with a BMI of 38.2 kg/m2 and associated co-morbidities as described above. The patient had extensive work-up,lost 18.8 lbs preoperatively and was electively scheduled for laparoscopic, possible open sleeve gastrectomy and gastropexy. Risks and complications of the surgery were discussed with the patient in advance, particularly the possibility of , pulmonary embolism, anastomotic leak, bleeding, bowel injury, GERD, cardiac, renal or pulmonary complications. The patient understood all the risks and was in agreement with the surgical plan. Hospital Course: The patient underwent an uneventful laparoscopic sleeve gastrectomy with gastropexy and repair of diaphragmatic hernia on the day of admission. Postoperatively, the patient was transferred to the surgical floor. The patient received IV Acetaminophen and IV dilaudid for pain control. Patient was started on bariatric phase 1 diet POD #0. On postoperative day one, the patient was feeling well without nausea, vomiting, fevers, or tachycardia. The patient had some mild incisional pain and the abdomen was soft. On the morning of postoperative day one, the patient was continued on 1 ounce of water or ice every half hour. During the day, the patient did fairly well, having some incisional pain, but able to ambulate adequately and to tolerate liquids well. Since the patient is doing well, we decided that the patient was ready to be discharged. The patient was given instructions to follow-up with me next week and to call my office for any fever over 101, persistent abdominal pain, nausea, vomiting, GERD, symptoms of DVT such as calf tenderness, or leg swelling, or pulmonary embolism such as chest pain or shortness of breath. The patient was also instructed to drink 40-60 ounces of liquids per day using the 1-ounce cups. The patient had been given prescriptions for Tylenol for pain, Zofran prn for nausea, and pantoprazole and carafate previously. The patient was encouraged to ambulate and use the incentive spirometer. The patient was allowed to shower, but no baths, and encouraged to stay active at home. All of these instructions were given to the patient personally. All questions were answered and the patient understood all instructions, the instructions were also given to the patient in print. Time Spent with Patient Time attestation: Total time spent providing and/or coordinating discharge services: Discharge coordination time: Less than 30 minutes Quality: Stroke Does the patient have a stroke diagnosis?: No Physical Exam Vital Signs: Vital Signs: Last Vital Signs Temp 98.5 F 11/11/21 11:29 Pulse 87 11/11/21 11:29 Resp 18 11/11/21 11:29 BP 125/84 11/11/21 11:29 Pulse Ox 98 11/11/21 11:29 BMI result Body Mass Index 35.9 DS: Data Data Completed and Pending Pending studies at discharge: Pending at discharge 11/11/21 15:18 Surgical [PTH] Routine Labs on day of discharge: Laboratory Results - last 24 hr 11/11/21 11:15 Urine Test NEGATIVE Discharge Plan Discharge Anticipated Discharge Date/Time: 11/12/21 10:48 Patient Disposition: Home, Self-Care Discharge Diagnosis: s/p sleeve gastrectomy Referrals: Elroy Ellis MD [Primary Care Provider] - 1 Week Discharge Medications: Continued lisinopril 20 mg tablet 10 mg PO DAILY 0RF ondansetron HCl 4 mg tablet 4 mg PO Q12H PRN (Reason: Nausea) 0RF pantoprazole 40 mg tablet,delayed release (DR/EC) 40 mg PO DAILY Qty: 30 2RF sucralfate 100 mg/mL suspension 10 ml PO BID Qty: 400 2RF Discharge Orders: Discharge Order (Routine); Ordered 11/12/21 Ordered By: Juan Luis Leos Diet: other Activity on Discharge: No heavy lifting Stand Alone Forms: Patient Portal Discharge page Care Plan Goals: weight loss Health Concerns: obesity Plan of Treatment: No tub baths, sex or returning to work until discussed at first post op appointment. No exercise, alcohol, tobacco or illegal drug use. Continue to use incentive spirometer hourly while awake. Walk in home for 5- 10 minutes every 2 hours during the first week. Continue phase 1 diet today and start phase 2 diet tomorrow morning. Follow all instructions in the bariatric handbook and call with any questions. 1. Please call your doctor or come back to the emergency room should any new symptoms arise. 2. You will receive a courtesy call from [facility] 24-48 hours after discharge. 3. Activity: abstain from alcohol, practice limited stair climbing, no bending, no driving, no exercise, no illicit substances, no lifting, no sex, no tub bath, no work. 4. Diet: continue as discussed with Dr. Leos. 5. Dressing Change/Wound Care: Do not change or remove surgical dressings unless they are wet or soiled. 6. Call your doctor if: - Your temperature exceeds 101.5 F - You experience excessive pain or swelling - You have an unexpected reaction to medication - You have excessive bleeding - You experience continued vomiting/nausea - Your incision begins to separate - Your incision shows signs of infection such as increased redness, swelling, excessive pain, heat, or drainage (light blood or clear fluid is normal) 7. General instructions: No lifting greater than 5 lbs for the next 4 weeks[address] driving within 24 hours of taking narcotic pain medications. If you do not move your bowels in the next 2 days, please take milk of magnesia over the counter. Please follow the post op diet and do not advance your diet until you are seen in the office in about 2 weeks. Please walk around your home every hour or two to prevent blood clots from forming in your legs. You do not need to wake from sleeping to walk. Please sleep in a bed or couch to prevent kinking at the hips and knees. Please take your incentive spirometer (your lung prior authorization technician) home with you and use it for the next few days to prevent pneumonias. You may shower, no hot tubs, baths or swimming pools. Please call the office with any questions or concerns such as increasing abdominal pain, fever, chills, shortness of breath, chest pain, leg pain or swelling, or redness or drainage from your incisions. Do not hesitate to contact the office with any questions at . The patient's medical history has been reviewed and they are considered low risk for post op DVT and therefore DVT prophylaxis is not considered necessary. Travel after surgery was reviewed. The patient has not disclosed any travel plans during the first 30 days after surgery and they have been advised that within the first 30 days after surgery any bus, plane, train or car travel over 2 hours in duration is contraindicated due to the possibility of developing blood clots from immobility. Any travel, needs to include periods of ambulation of 10 minutes in duration every 2 hours. The patient was instructed to discuss any plans for travel during this period with their bariatric surgeon. Assessment: stable, post op sleeve gastrectomy
[2021-11-11] MEDS: Famotidine/PF 20 MG/2 ML VIAL IVPUSH ×2 (16:09→22:01)
[2021-11-11 16:21] LABS: Hematocrit 39.5 % (37.0-47.0); Hemoglobin 13.3 g/dl (12.0-16.0)
[2021-11-11 16:34] LABS: Anion Gap 15 (12-20); Blood Urea Nitrogen 19 mg/dL (9-16); Calcium 8.9 mg/dL (8.4-10.2); Carbon Dioxide 22 mmol/L (22-29); Chloride 106 mmol/L (96-108); Creatinine Clr Calc Pharmacy 110.6; Estimated Glomerular Filt Rate > 60; Glucose Random 133 mg/dL (60-115); Potassium 4.6 mmol/L (3.3-5.1); Sodium 138 mmol/L (135-145)
[2021-11-11] MEDS: Metoclopramide HCl 10 MG/2 ML VIAL IVPUSH (17:01)
[2021-11-11] MEDS: ondansetron HCL 4 MG/2 ML VIAL IVPUSH (22:00)
[2021-11-12 03:18] VITALS: BP 128/78; PULSE 82; RESP 14; TEMP 37.1; O2SAT 95
[2021-11-12] MEDS: Lactated Ringers 1,000 ML 100 ML IVCONT (04:02)
[2021-11-12] MEDS: ondansetron HCL 4 MG/2 ML VIAL IVPUSH (05:54)
[2021-11-12 05:58] LABS: MANUAL DIFF FLAG NO
[2021-11-12 06:03] LABS: Hematocrit 37.6 % (37.0-47.0); Hemoglobin 12.5 g/dl (12.0-16.0); Imm Gran Abs Auto 0.02 X10*3/uL (0.00-0.03); Imm Gran Pct Auto 0.3 % (0.0-0.4); Lymphocytes Absolute Auto 0.7 X10*3/uL (1.2-4.9); Lymphocytes Percent Auto 9.5 % (20-40); Mean Corpuscular HGB Conc 33.2 g/dl (31.0-35.0); Mean Corpuscular Hemoglobin 30.6 pg (27.0-33.0); Mean Corpuscular Volume 91.9 fL (80.0-98.0); Mean Platelet Volume 11.6 fL (9.4-12.3); Monocytes Absolute Auto 0.4 X10*3/uL (0.1-1.2); Monocytes Percent Auto 5.2 % (2-11); Neutrophils Absolute Auto 5.9 x10*3/uL (2.0-8.3); Platelet Count 213 X10*3/uL (160-400); Red Blood Count 4.09 X10*6/uL (4.20-5.50); Red Cell Distribution Width 12.5 % (11.0-16.0); White Blood Count 6.9 X10*3/uL (4.8-10.8)
[2021-11-12 06:20] LABS: Anion Gap 15 (12-20); Blood Urea Nitrogen 11 mg/dL (9-16); Calcium 9.3 mg/dL (8.4-10.2); Carbon Dioxide 22 mmol/L (22-29); Chloride 106 mmol/L (96-108); Creatinine Clr Calc Pharmacy 117.7; Estimated Glomerular Filt Rate > 60; Glucose Random 116 mg/dL (60-115); Potassium 4.3 mmol/L (3.3-5.1); Sodium 139 mmol/L (135-145)
[2021-11-12] MEDS: Famotidine/PF 20 MG/2 ML VIAL IVPUSH (07:31)
[2021-11-12] MEDS: lisinopriL 10 MG TABLET PO (07:31)
[2021-11-12 07:32] VITALS: BP 133/90; PULSE 73; RESP 18; TEMP 36.9; O2SAT 96
--- NOTE | 2021-11-12 08:36 | MHC.CM.PN ---
PATIENT LIVES WITH HER CHILDREN SHE IS FULLY INDEPENDENT WITH ALL ADLS. NO DME OR VNA SERVICES AND DOES NOT NEED ANY AT DC FRIEND IS SCHEDULED TO TRANSPORT BY [facility] TODAY. RN AWARE OF THE PLAN. PATIENT DENIES NEED TO COMPLETE HCP AT THIS TIME. SHE IS AWARE THAT CASE MANAGEMENT CAN ASSIST IF SHE CHOOSES TO DO SO. SHE IS NOT COVID-19 VACCINATED AND REPORTS NO COVID+ HISTORY
--- NOTE | 2021-11-12 13:02 | HO.POSTANES ---
Post Anesthesia Evaluation Post Anesthesia Evaluation Vital Signs: Vital Signs Temp Pulse Resp BP Pulse Ox 11/12/21 07:32 98.5 F 73 18 133/90 H 96 11/12/21 03:18 98.8 F 82 14 128/78 95 Anesthesia: General Endotracheal-GETA Mental Status: Awake Pain Control: Satisfactory Nausea/Vomiting: None Hydration: Adequate Anesthesia-Related Issues: No Anes. Related Issues
== END 2021-11-12 10:29 | disposition home or self-care (01) | DRG 403 ==
LOC: HO.SSSA 15:51 → HO.S3 17:28
PROVIDERS: Nurse Practitioner; Physician Assistant; Physician Assistant Surgical; Admitting Provider Surgery; PCP Internal Medicine; Visit Provider Surgery
PROC: 0DB64Z3 Excision of Stomach, Percutaneous Endoscopic Approach, Vertical (ICD-10-PCS; CPT 43845; principal; 2021-11-11 12:50)
DX: E66.01 Morbid (severe) obesity due to excess calories (principal); F41.9 Anxiety disorder, unspecified; K80.20 Calculus of gallbladder without cholecystitis without obstruction; K21.9 Gastro-esophageal reflux disease without esophagitis; I10 Essential (primary) hypertension; K66.0 Peritoneal adhesions (postprocedural) (postinfection); Z20.822 Contact with and (suspected) exposure to COVID-19; Z68.35 Body mass index [BMI] 35.0-35.9, adult; Z87.891 Personal history of nicotine dependence; Z79.899 Other long term (current) drug therapy
CPT/HCPCS: 36415; 80048; 80053; 80061; 81025; 83036; 83525; 84443; 85014; 85018; 85025; 85610; 85730; 86140; 86850; 86900; 86901; 87635; 88307; 88342; 99024; A4649; J0131; J0690; J1100; J1170; J2250; J2370; J2405; J2550; J2765; J3010

== ENCOUNTER → 2021-11-18 14:19 | Outpatient (BNVA) | payer OTHER, SELFPAY | PROVIDERS: PCP Internal Medicine; Referring Provider Internal Medicine; Visit Provider Surgery | DX: E66.9 Obesity, unspecified (principal); Z68.34 Body mass index [BMI] 34.0-34.9, adult; Z98.84 Bariatric surgery status | CPT/HCPCS: 99212 ==

== ENCOUNTER → 2021-12-10 08:00 | Outpatient (BNVA) | payer OTHER, SELFPAY | PROVIDERS: PCP Internal Medicine; Visit Provider Dietitian, Registered | DX: E66.9 Obesity, unspecified (principal); Z68.32 Body mass index [BMI] 32.0-32.9, adult; Z98.84 Bariatric surgery status; Z71.3 Dietary counseling and surveillance | CPT/HCPCS: 97803 ==

== ENCOUNTER → 2021-12-16 08:09 | Outpatient (BNVA) | payer OTHER, SELFPAY | PROVIDERS: PCP Internal Medicine; Referring Provider Surgery; Visit Provider Dietitian, Registered | DX: E66.9 Obesity, unspecified (principal); Z68.31 Body mass index [BMI] 31.0-31.9, adult; Z98.84 Bariatric surgery status; Z71.3 Dietary counseling and surveillance | CPT/HCPCS: 97803 ==

== ENCOUNTER → 2022-01-06 08:07 | Outpatient (BNVA) | payer OTHER, SELFPAY | PROVIDERS: PCP Internal Medicine; Referring Provider Surgery; Visit Provider Dietitian, Registered | DX: Z13.89 Encounter for screening for other disorder (principal) ==

== ENCOUNTER → 2022-02-10 09:43 | Outpatient (BNVA) | payer OTHER, SELFPAY | PROVIDERS: PCP Internal Medicine; Referring Provider Surgery; Visit Provider Dietitian, Registered | DX: E66.3 Overweight (principal); Z68.27 Body mass index [BMI] 27.0-27.9, adult | CPT/HCPCS: 97803 ==

== ENCOUNTER → 2022-03-12 08:43 | Outpatient (BNVA) | payer OTHER, SELFPAY | PROVIDERS: PCP Internal Medicine; Referring Provider Surgery; Visit Provider Dietitian, Registered | DX: E66.3 Overweight (principal) | CPT/HCPCS: 97803 ==

== ENCOUNTER → 2022-06-23 16:09 | Outpatient (BNVA) | payer OTHER, SELFPAY | PROVIDERS: PCP Internal Medicine; Visit Provider Dietitian, Registered | DX: E66.9 Obesity, unspecified (principal); Z68.22 Body mass index [BMI] 22.0-22.9, adult; Z98.84 Bariatric surgery status | CPT/HCPCS: 97803 ==

== ENCOUNTER → 2022-11-26 13:13 | Outpatient (BNVA) | payer OTHER, SELFPAY | PROVIDERS: PCP Internal Medicine; Visit Provider Physician Assistant Surgical | DX: L98.7 Excessive and redundant skin and subcutaneous tissue (principal); R21 Rash and other nonspecific skin eruption; E53.8 Deficiency of other specified B group vitamins; E55.9 Vitamin D deficiency, unspecified; Z90.3 Acquired absence of stomach [part of] | CPT/HCPCS: 99212 ==

== ENCOUNTER 2023-12-25 09:15 | Outpatient (AMB) | payer OTHER, SELFPAY ==
--- NOTE | 2023-12-25 09:37 | MHC.OFFWIV ---
Intake Vital Signs 12/25/23 09:39 Height 5 ft 5 in Weight 123 lb BMI 20.5 BP 108/66 Blood Pressure Location Rt brachial Pulse 69 Pulse Source Pulse Oximeter Temp 98.3 F Temp Source Oral Pulse Oximetry (%) 98 Oxygen Delivery Method Room Air Intake Visit Reasons: EST/lump left side of neck (lobby) Intake Note: Pt is here today c/o lump Left side of neck x4 months Patient Tobacco Use Status: Former Tobacco user Quit Date: age 30 Allergies No Known Allergies [No Known Allergies*] Allergy (Verified 12/25/23 09:55) Medication List - Last Reconciled 12/25/23 by ENE Houston- No Known Home Meds HPI HPI Comments History of Present Illness Details Here today to complain of a lump on the left side of her neck that was found incidentally about 4 months ago. About the size of a pea. Has not changed in size since she noticed. There i not painful. She does not have a fever, sore throat, ear pain or any constitutional symptoms. She has not tried any at home remedies. She is a current smoker. [facility] Medical History (Updated 12/25/23 @ 10:00 by ENE Houston-DEANGELO) Cholelithiasis BMI 35.0-35.9,adult Anemia affecting GERD (gastroesophageal reflux disease) BMI 38.0-38.9,adult Abnormal EKG Vitamin B12 deficiency Vitamin D deficiency Adjustment disorder, unspecified Obesity Hypertension Encounter for surveillance of Nexplanon subdermal contraceptive Physical exam Anxiety Immunization refused Increased BMI Diverticulitis Hx of vertigo Surgical History H/O colonoscopy S/P laparoscopic sleeve gastrectomy Family History Father Bipolar 1 disorder Chronic mental illness Mental health disorder Mother Diabetes Hypertension Maternal Grandmother Diabetes Hypertension Maternal Grandfather Diabetes Paternal Grandmother Diabetes Maternal Aunt Diabetes Daughter In good health Social History (Updated 11/26/22 @ 13:18 by RUBEN Pearce) Household Members: Children Household Members Other:: minor children Housing: Apartment Are you a primary child care specialist to a significant other at home: Yes (minor children) Do you presently have visiting nurse or other home services: No Alcohol intake: current Alcohol intake frequency: holidays/special occasions only Patient Tobacco Use Status: Former Tobacco user Quit Date: age 30 Tobacco use type: Cigarette Years Smoked: 10 e-Cigarette/Vaping Use: Never Used Second Hand Smoke Exposure: No service: No Current occupational status: employed Cognitive needs: No Hearing needs: No Vision needs: No Review of Systems Const All systems reviewed & are unremarkable except as noted in HPI and below Physical Exam Vital Signs: Last Vital Signs Temp 98.3 F 12/25/23 09:39 Pulse 69 12/25/23 09:39 BP 108/66 12/25/23 09:39 Pulse Ox 98 12/25/23 09:39 Oxygen Delivery Method Room Air 12/25/23 09:39 BMI result Body Mass Index 20.5 HEENT Other: Awake alert NAD Sclera and conjunctiva clear bilat TM intact bilat very mild effusion bilat MMM, pharynx WNL Head images: 1. Pea size mobile soft spongy lymph node noted. Overlying skin is intact. Painless. Assessment & Plan Assessment & Plan (1) Lymphadenitis: Code(s): I88.9 - Nonspecific lymphadenitis, unspecified Plan: . Plan This note is constructed using voice recognition software. While every effort has been made to ensure accuracy in independent living advisor, still errors may have been included Sometimes, these errors may affect the content or meaning of the given sentence . Patient Instructions: Reassured. Apply warm moist compresses several times per day and gently massage the area. If there is no improvement in the next 3-4 weeks or if the area becomes larger, develops constitutional symptoms or continues to have any worries or concerns did advise her to follow up with her primary care provider at that time a discussion can be had about potentially ordering imaging such as an ultrasound however I would defer to the primary care about any further follow up. Coding Level of Care Code Est Pt Level 3 (10681) Diagnoses Lymphadenitis I88.9
[2023-12-25 09:39] VITALS: BP 108/66; PULSE 69; TEMP 36.8; O2SAT 98; BMI 20.5
== END 2023-12-25 10:10 | disposition home or self-care (01) ==
PROVIDERS: Visit Provider Nurse Practitioner Family
DX: I88.9 Nonspecific lymphadenitis, unspecified (principal)
CPT/HCPCS: 99051; 99213